=== PATIENT | female | born 1955 | race Caucasian/White ===

== ENCOUNTER 2018-06-26 12:46 | Emergency (ER) | payer OTHER ==
[2018-06-26] MEDS: KETOROLAC 15 MG INJ IM (14:08)
== END 2018-06-26 15:41 | disposition home or self-care (01) ==
LOC: E/R 12:46
DX: S20.212A Contusion of left front wall of thorax, initial encounter (principal); I10 Essential (primary) hypertension; V87.7XXA Person injured in collision between other specified motor vehicles (traffic), initial encounter
CPT/HCPCS: 71045; 93005; 96372; 99284-25